=== PATIENT | male | born 1995 | race American Indian/Alaskan Native ===

== ENCOUNTER 2017-10-26 10:03 | Emergency (ER) | payer MEDICAID ==
[2017-10-26] MEDS ORDERED: Bacitracin Oint 1 GM U/D Packet TOP ONE (10:28)
[2017-10-26] MEDS ORDERED: Amoxicillin/Clavulanate K 875-125 MG Tab PO ONE (10:31)
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
== END 2017-10-26 11:14 | disposition home or self-care (01) ==
LOC: DL.ED 10:03
DX: S61.251A Open bite of left index finger without damage to nail, initial encounter (principal); S00.83XA Contusion of other part of head, initial encounter; S00.431A Contusion of right ear, initial encounter; S10.93XA Contusion of unspecified part of neck, initial encounter; S20.219A Contusion of unspecified front wall of thorax, initial encounter; F17.210 Nicotine dependence, cigarettes, uncomplicated; W50.3XXA Accidental bite by another person, initial encounter
CPT/HCPCS: 99283; A9270

== ENCOUNTER 2022-01-04 10:06 | Emergency (ER) | payer BC, MEDICAID ==
[2022-01-04] MEDS ORDERED: Tetracaine HCl/PF 0.5% 4 ML Bottle EYEBOTH ONE (10:18)
[2022-01-04] MEDS ORDERED: Fluorescein 1 MG Ophth Strip EYERT ONE (10:18)
== END 2022-01-04 10:56 | disposition home or self-care (01) ==
LOC: DL.ED 10:06
DX: S05.01XA Injury of conjunctiva and corneal abrasion without foreign body, right eye, initial encounter (principal); W50.4XXA Accidental scratch by another person, initial encounter
CPT/HCPCS: 99282; 99283

== ENCOUNTER 2022-01-07 04:13 | Emergency (ER) | payer BC, MEDICAID | END 2022-01-07 04:48 | disposition home or self-care (01) | LOC: DL.ED 04:13 | DX: G56.81 Other specified mononeuropathies of right upper limb (principal); Z72.0 Tobacco use | CPT/HCPCS: 99282; 99283 ==